=== PATIENT | female | born 1965 | race Caucasian/White ===

== ENCOUNTER 2016-07-27 15:47 | Emergency (ER) | payer MEDICAID ==
[~2016-07-27] VITALS: Ht 172.7 cm; Wt 81.6 kg
--- NOTE | 2016-07-27 15:47 | NUR ---
PT STATES SHE FOUND AN EGG SHAPE LUMP IN HER RIGHT BREAST 1 HOUR AGO PT DENIES TRAUMA. NAD NOTED. AAO X4, AMBULATORY WITH STEADY GAIT. RR EVEN AND UNLABORED. VSS. AWAITING MD FOR EVAL.
--- NOTE | 2016-07-27 16:00 | NUR ---
PA AT BEDSIDE FOR EVAL.
--- NOTE | 2016-07-27 17:03 | NUR ---
PT. VERBALIZED UNDERSTANDING OF AFTERCARE INSTRUCTIONS.Patient discharged to home in stable condition. Written and verbal after care instructions given. Patient verbalizes understanding of instruction.
[2016-07-27 17:04] VITALS: BP 122/72
== END 2016-07-27 17:04 | disposition home or self-care (01) ==
LOC: ER 15:50
DX: N60.01 Solitary cyst of right breast (principal)
CPT/HCPCS: 76642; 99284; A4606; Z7610

== ENCOUNTER 2020-05-05 10:50 | Emergency (ER) | payer MEDICAID, OTHER ==
[~2020-05-05] VITALS: Ht 172.7 cm; Wt 103.4 kg
--- NOTE | 2020-05-05 10:50 | NUR ---
PT BIB SELF C/OR LOWER QUADRANT ABDOMINAL PAIN STARTED 2 HRS AGO. VOMITED X1 30MNS AGO. PT IS AAOX4, NOT IN RESPIRATORY DISTRESS, HOOKED TO RETURN TO FACTORY CLERK, KEPT RESTED AND COMFORTABLE. WILL CONTINUE TO MONITOR.
[2020-05-05] MEDS ORDERED: MORPHINE SULFATE INJ 2 MG/ML DISP.SYRIN IV ONE (11:30)
[2020-05-05] MEDS ORDERED: ONDANSETRON HCL/PF 4 MG/2 ML VIAL IVP ONE (11:30)
--- NOTE | 2020-05-05 11:30 | NUR ---
SEEN AND EXAMINED BY .
[2020-05-05] MEDS ORDERED: ONDANSETRON HCL/PF 4 MG/2 ML VIAL ONE (11:35)
[2020-05-05] MEDS ORDERED: MORPHINE SULFATE INJ 4 MG/ML DISP.SYRIN ONE (11:35)
--- NOTE | 2020-05-05 11:36 | NUR ---
IV LINE ESTABLISHED BLOOD DRAWN AND SENT TO LAB.
[2020-05-05 11:59] LABS: BASOPHILS # (AUTO) 0.1 /CMM (0.0-0.2); BASOPHILS % (AUTO) 0.8 % (0.0-2.0); EOSINOPHILS % (AUTO) 0.8 % (0.0-6.0); HEMATOCRIT 32 % (33-45); HEMOGLOBIN 9.7 g/dL (11.5-14.8); LYMPHOCYTES # (AUTO) 2.2 /CMM (0.8-4.8); LYMPHOCYTES % (AUTO) 23.9 % (20.0-44.0); MEAN CORPUSCULAR HGB CONC 31 g/dl (31.0-36.0); MEAN CORPUSCULAR VOLUME 71 fL (82-100); MONOCYTES # (AUTO) 0.5 /CMM (0.1-1.30); MONOCYTES % (AUTO) 5.7 % (2.0-12.0); NEUTROPHILS # (AUTO) 6.4 /CMM (1.8-8.9); NEUTROPHILS % (AUTO) 68.8 % (43.0-81.0); PLATELET COUNT (AUTO) 399 /CMM (150-450); RED BLOOD CELL COUNT(AUTO) 4.43 MIL/uL (4.0-5.2); WHITE BLOOD COUNT (AUTO) 9.3 K/uL (4.3-11.0)
[2020-05-05 12:02] LABS: CALCIUM, SERUM 8.8 mg/dL (8.5-10.1); CREATININE 0.8 mg/dL (0.6-1.3)
[2020-05-05 12:09] LABS: ALBUMIN 3.7 g/dL (3.4-5.0); BILIRUBIN,DIRECT 0.1 mg/dL (0.0-0.2); BILIRUBIN,TOTAL 0.2 mg/dL (0.2-1.0)
[2020-05-05] MEDS ORDERED: IBUP-1955 PO (13:50)
[2020-05-05] MEDS ORDERED: TRAM50TA2 PO (13:50)
[2020-05-05 14:33] VITALS: BP 130/72
--- NOTE | 2020-05-05 14:33 | NUR ---
Patient discharged to home in stable condition. Written and verbal after care instructions given. Patient verbalizes understanding of instruction.IV removed. Catheter intact and site benign. Pressure and 4x4 applied to site. No bleeding noted. Pt ambulatory with a steady gait
== END 2020-05-05 14:40 | disposition home or self-care (01) ==
LOC: ER 10:56
DX: N85.7 Hematometra (principal); R10.31 Right lower quadrant pain; R10.32 Left lower quadrant pain; R11.10 Vomiting, unspecified
CPT/HCPCS: 36415; 74176; 76856; 80048; 80076; 83690; 84702; 85025; 85730; 96374; 96375; 99285; J2270; J2405